=== PATIENT | female | born 1990 | race Caucasian/White ===

== ENCOUNTER 2018-12-30 12:40 | Outpatient (CLI) | payer OTHER ==
[2018-12-30] MEDS: LACTATED RINGER'S 1,000 ML IV (13:21)
[2018-12-30 13:25] LABS: ADD MAN DIFF? NO
[2018-12-30 13:26] LABS: BASOPHILS % 0.4 % (0.0-2.0); EOSINOPHILS # 0.1 10^3/ul (0.0-0.5); EOSINOPHILS % 2.2 % (0.0-7.0); HEMATOCRIT 39.1 % (37.0-47.0); HEMOGLOBIN 13.2 g/dl (12.0-16.0); LYMPHOCYTES # 1.8 10^3/ul (0.8-2.9); LYMPHOCYTES % 32.8 % (15.0-51.0); MEAN CORPUSCULAR HEMOGLOBIN 28.3 pg (29.0-33.0); MEAN CORPUSCULAR HGB CONC 33.8 g/dl (32.0-37.0); MEAN CORPUSCULAR VOLUME 83.7 fl (82.0-101.0); MEAN PLATELET VOLUME 10.6 fl (7.4-10.4); MONOCYTE # 0.4 10^3/ul (0.3-0.9); MONOCYTES % 6.5 % (0.0-11.0); NEUTROPHIL # 3.2 10^3/ul (1.6-7.5); NEUTROPHILS % 56.8 % (39.0-77.0); PLATELET COUNT 182 10^3/UL (140-415); RED BLOOD COUNT 4.67 10^6/ul (4.20-5.40); RED CELL DISTRIBUTION WIDTH 13.4 % (11.5-14.5)
[2018-12-30 13:26] LABS: WHITE BLOOD COUNT 5.6 10^3/ul (4.8-10.8)
[2018-12-30 13:38] LABS: INR 0.81; PROTIME 11.3 Sec (11.9-14.9); PT RATIO 0.9
[2018-12-30 13:39] LABS: PARTIAL THROMBOPLASTIN TIME 29.5 Sec (23.0-35.0)
[2018-12-30 14:07] LABS: HEPATITIS B SURFACE ANTIGEN NEGATIVE (NEGATIVE)
[2018-12-30 15:45] LABS: RAPID PLASMA REAGIN NONREACTIVE (NR)
[2018-12-30 16:21] LABS: ADD UMIC NO; UR ASCORBIC ACID 20 mg/dL (NEGATIVE); UR BILIRUBIN (Dip) NEGATIVE (NEGATIVE); UR BLOOD (Dip) NEGATIVE (NEGATIVE); UR CLARITY CLEAR (CLEAR); UR COLOR YELLOW (YELLOW); UR GLUCOSE (Dip) NEGATIVE (NEGATIVE); UR KETONES (Dip) NEGATIVE (NEGATIVE); UR LEUKOCYTE ESTERASE (Dip) NEGATIVE Leu/ul (NEGATIVE); UR NITRITE (Dip) NEGATIVE (NEGATIVE); UR TOTAL PROTEIN (Dip) NEGATIVE (NEGATIVE); UR UROBILINOGEN (Dip) NEGATIVE (NEGATIVE)
[2018-12-30 16:39] LABS: AMPHETAMINE/METHAMPHETAMINE Negative (NEGATIVE); BARBITURATES Negative (NEGATIVE); BENZODIAZEPINES Negative (NEGATIVE); CANNABINOIDS Negative (NEGATIVE); COCAINE Negative (NEGATIVE); OPIATES Negative (NEGATIVE)
== END 2018-12-30 16:40 | disposition home or self-care (01) ==
LOC: OBT 12:40 → L-D 12:40 → OBT 16:40
DX: O62.9 Abnormality of forces of labor, unspecified (principal); Z3A.35 35 weeks gestation of pregnancy
CPT/HCPCS: 36415; 80307; 81003; 85025; 85610; 85730; 86592; 86850; 86900; 86901; 87340; 96360; 96361

== ENCOUNTER 2019-01-11 01:45 | Inpatient (IN) | payer OTHER ==
[2019-01-11] MEDS ORDERED: CARBOPROST 250 MCG INJ IM ×2 (02:30→16:30)
[2019-01-11] MEDS ORDERED: OXYTOCIN 30 UNITS/LR 500 ML IV ×2 (02:30→16:30)
[2019-01-11] MEDS ORDERED: MISOPROSTOL 200 MCG TAB PR ×2 (02:30→16:30)
[2019-01-11] MEDS: LACTATED RINGER'S 1,000 ML IV ×3 (02:43→19:23)
[2019-01-11] MEDS ORDERED: AMPICILLIN 2 GM/NS (PMX) 100 ML (02:47)
[2019-01-11 02:52] LABS: ADD MAN DIFF? NO
[2019-01-11 02:55] LABS: WHITE BLOOD COUNT 6.8 10^3/ul (4.8-10.8)
[2019-01-11 02:55] LABS: BASOPHILS % 0.3 % (0.0-2.0); EOSINOPHILS # 0.1 10^3/ul (0.0-0.5); EOSINOPHILS % 1.8 % (0.0-7.0); HEMATOCRIT 37.4 % (37.0-47.0); HEMOGLOBIN 12.9 g/dl (12.0-16.0); LYMPHOCYTES # 2.2 10^3/ul (0.8-2.9); LYMPHOCYTES % 32.3 % (15.0-51.0); MEAN CORPUSCULAR HEMOGLOBIN 28.7 pg (29.0-33.0); MEAN CORPUSCULAR HGB CONC 34.5 g/dl (32.0-37.0); MEAN CORPUSCULAR VOLUME 83.1 fl (82.0-101.0); MONOCYTE # 0.4 10^3/ul (0.3-0.9); MONOCYTES % 5.3 % (0.0-11.0); NEUTROPHILS % 59.7 % (39.0-77.0); PLATELET COUNT 184 10^3/UL (140-415); RED CELL DISTRIBUTION WIDTH 13.3 % (11.5-14.5)
[2019-01-11] MEDS: AMPICILLIN 2 GM/NS (PMX) 100 ML IVPB (03:00)
[2019-01-11] MEDS: CEFAZOLIN 2 GM/50 ML (PMX) 50 ML IVPB (03:00)
[2019-01-11 03:12] LABS: AMPHETAMINE/METHAMPHETAMINE Negative (NEGATIVE); BARBITURATES Negative (NEGATIVE); BENZODIAZEPINES Negative (NEGATIVE); CANNABINOIDS Negative (NEGATIVE); COCAINE Negative (NEGATIVE); OPIATES Negative (NEGATIVE)
[2019-01-11 03:15] LABS: INR 0.77; PROTIME 10.9 Sec (11.9-14.9); PT RATIO 0.9
[2019-01-11] MEDS: AZITHROMYCIN 500MG/NS (PMX) 250 ML IVPB (03:23)
[2019-01-11] MEDS: ONDANSETRON 4 MG INJ IV ×2 (03:28→06:49)
[2019-01-11] MEDS ORDERED: METOCLOPRAMIDE 10 MG INJ IM (03:30)
[2019-01-11] MEDS: METOCLOPRAMIDE 10 MG INJ IV (03:31)
[2019-01-11 03:46] LABS: HEPATITIS B SURFACE ANTIGEN NEGATIVE (NEGATIVE)
[2019-01-11] MEDS ORDERED: morphine SULFATE/PF (10 MG/10 ML) INJ (03:54)
[2019-01-11] MEDS ORDERED: DIPHENHYDRAMINE 50 MG INJ IV ×2 (04:30)
[2019-01-11] MEDS ORDERED: HYDROmorphONE 1 MG/5 ML IV SYRINGE IV ×3 (04:30)
[2019-01-11] MEDS ORDERED: HYDROmorphONE 0.5 MG/0.5 ML SYG IV (04:30)
[2019-01-11] MEDS ORDERED: NALOXONE (0.4 MG/ML) INJ IV (04:30)
[2019-01-11] MEDS ORDERED: FENTAnyl 50 MCG/ML VIAL IV ×3 (04:30)
[2019-01-11] MEDS ORDERED: KETOROLAC 30 MG INJ IV (04:30)
[2019-01-11] MEDS ORDERED: ONDANSETRON 4 MG INJ IV (04:30)
[2019-01-11] MEDS ORDERED: ALBUTEROL 0.083% (NEB) 2.5 MG/3 ML AMP HHN (04:30)
[2019-01-11] MEDS ORDERED: METOCLOPRAMIDE 10 MG INJ IV (04:30)
[2019-01-11] MEDS: OXYTOCIN 30 UNITS/LR 500 ML IV ×2 (05:48→16:08)
[2019-01-11] MEDS: KETOROLAC 30 MG INJ IV ×3 (05:51→21:57)
[2019-01-11] MEDS: HYDROmorphONE 0.5 MG/0.5 ML SYG IV ×2 (06:42→10:19)
[2019-01-11] MEDS ORDERED: EPHEDrine 25 MG/5 ML SYG IV (15:37)
[2019-01-11] MEDS ORDERED: PHENYLephrine (100 MCG/ML) 10ML SYG IV (15:37)
[2019-01-11] MEDS ORDERED: OXYCODONE/ACETAMINOPHEN (5/325) TAB PO (16:30)
[2019-01-11] MEDS ORDERED: METHYLERGONOVINE 0.2 MG INJ IM (16:30)
[2019-01-11] MEDS ORDERED: LANOLIN HPA 1 PKT TOP (16:30)
[2019-01-11 17:25] LABS: RAPID PLASMA REAGIN NONREACTIVE (NR)
[2019-01-11] MEDS: SENNA/DOCUSATE NA (8.6MG/50MG) TAB PO (21:00)
[2019-01-12] MEDS: IBUPROFEN 800 MG TAB PO ×3 (05:33→21:41)
[2019-01-12] MEDS: OXYCODONE/ACETAMINOPHEN (5/325) TAB PO ×4 (05:34→21:42)
[2019-01-12 08:02] LABS: ADD MAN DIFF? NO
[2019-01-12 08:09] LABS: BASOPHILS % 0.3 % (0.0-2.0); EOSINOPHILS # 0.1 10^3/ul (0.0-0.5); EOSINOPHILS % 0.7 % (0.0-7.0); MEAN CORPUSCULAR HEMOGLOBIN 28.9 pg (29.0-33.0); MEAN CORPUSCULAR HGB CONC 33.3 g/dl (32.0-37.0); MEAN CORPUSCULAR VOLUME 86.7 fl (82.0-101.0); MEAN PLATELET VOLUME 10.5 fl (7.4-10.4); MONOCYTE # 0.3 10^3/ul (0.3-0.9); MONOCYTES % 4.6 % (0.0-11.0); NEUTROPHIL # 4.8 10^3/ul (1.6-7.5); NEUTROPHILS % 65.8 % (39.0-77.0); PLATELET COUNT 147 10^3/UL (140-415); RED BLOOD COUNT 3.46 10^6/ul (4.20-5.40); RED CELL DISTRIBUTION WIDTH 13.6 % (11.5-14.5)
[2019-01-12 08:09] LABS: WHITE BLOOD COUNT 7.2 10^3/ul (4.8-10.8)
[2019-01-12] MEDS: SENNA/DOCUSATE NA (8.6MG/50MG) TAB PO ×2 (10:03→21:47)
[2019-01-12] MEDS: ALBUTEROL HFA 8 GM INHALER INH (21:42)
[2019-01-13] MEDS: OXYCODONE/ACETAMINOPHEN (5/325) TAB PO ×3 (03:21→16:29)
[2019-01-13] MEDS: IBUPROFEN 800 MG TAB PO ×3 (07:01→22:21)
[2019-01-13] MEDS: SENNA/DOCUSATE NA (8.6MG/50MG) TAB PO ×2 (09:10→22:21)
[2019-01-14] MEDS: OXYCODONE/ACETAMINOPHEN (5/325) TAB PO ×2 (03:54→12:50)
[2019-01-14] MEDS: IBUPROFEN 800 MG TAB PO ×2 (06:00→09:29)
[2019-01-14] MEDS: DIPHTH/TET/ACEL PERTUSS (ADULT) 0.5 ML VIAL IM* (09:00)
[2019-01-14] MEDS: SENNA/DOCUSATE NA (8.6MG/50MG) TAB PO (09:29)
[2019-01-14] MEDS: ALBUTEROL HFA 8 GM INHALER INH (14:58)
== END 2019-01-14 18:40 | disposition home or self-care (01) | DRG 788 ==
LOC: OBT 01:45 → L-D 01:45 → OBT 02:10 → L-D 02:10 → PP1 14:25
PROVIDERS: Specialist
PROC: 10D00Z1 Extraction of Products of Conception, Low, Open Approach (ICD-10-PCS; principal; 2019-01-11)
DX: O30.003 Twin pregnancy, unspecified number of placenta and unspecified number of amniotic sacs, third trimester (principal); Z3A.37 37 weeks gestation of pregnancy; Z37.2 Twins, both liveborn
CPT/HCPCS: 80307; 85025; 85610; 85730; 86592; 86850; 86900; 86901; 87340; 88307; 99464